=== PATIENT | male | born 1990 | race Caucasian/White ===

== ENCOUNTER 2017-09-08 10:08 | Emergency (ER) | payer OTHER ==
[~2017-09-08] VITALS: Ht 167.6 cm; Wt 111.0 kg
[2017-09-08 10:15] VITALS: Ht 167.6 cm; Wt 111.0 kg
[2017-09-08] MEDS ORDERED: METOCLOPRAMIDE HCL INJ 5 MG/ML 2 ML VIAL IV STA (10:29)
[2017-09-08] MEDS ORDERED: SODIUM CHLORIDE 0.9% 500ML 500 ML IV STA (10:29)
--- NOTE | 2017-09-08 10:31 | EMERGENCY ROOM VISIT NOTE ---
History Report prepared by Richard: Jojo Carroll Under the Supervision of: Dr. Heron Ray M.D. First contact with patient: 10:22 Chief Complaint: NAUSEA Stated Complaint: NAUSEA,CRAMPING,DIARRHEA,VOMITING History of Present Illness The patient is a 27 year old male who presents to the Emergency Room with complaints of persistent vomiting that began this morning. The patient states that over the past week he has been experiencing diarrhea. He states that he has 3-4 bowel movements per day. The patient denies any questionable food sources or recent antibiotic use. He states that he was also experiencing nausea and abdominal pain. The patient describes his abdominal pain as a dull cramping pain. He states that he was prescribed Zofran for his nausea. The patient states that he has been vomiting. He states that he has a history of an appendectomy. Source of History: patient Onset: this morning Position: other (global) Quality: other (vomiting) Timing: other (persistent) Associated Symptoms: + nausea, + abdominal pain, + diarrhea Review of Systems See HPI for pertinent positives & negatives. A total of 10 systems reviewed and were otherwise negative. Past Medical & Surgical Medical Problems: (1) Asthma (2) Bronchitis Surgical Problems: (1) History of appendectomy Family History Cancer Diabetes mellitus Heart disease Hypertension Kidney disease Kidney stones Seizures Social History Smoking Status: Current Every Day Smoker Alcohol Use: occasionally Marital Status: single Housing Status: lives with family Occupation Status: employed Current/Historical Medications Scheduled Ondasetron Odt (Zofran Odt), 4 MG SL Q6H Scheduled PRN Promethazine Hcl (Phenergan), 25 MG PO Q6H PRN for Nausea Allergies Coded Allergies: No Known Allergies (Unverified , 09/08/17) Physical Exam Vital Signs Date Time Temp Pulse Resp B/P (MAP) Pulse Ox O2 Delivery O2 Flow Rate FiO2 09/08/17 12:51 37.2 64 19 105/51 96 09/08/17 12:43 64 19 96 09/08/17 12:31 105/51 09/08/17 12:17 103/57 09/08/17 11:13 71 22 96 09/08/17 11:08 71 18 95 09/08/17 11:05 100/60 09/08/17 10:59 75 09/08/17 10:38 79 21 94 09/08/17 10:15 37.2 89 20 118/80 94 Room Air Physical Exam GENERAL: Patient is a healthy-appearing well-nourished male HEAD: Normocephalic atraumatic EYES: Ocular movements intact pupils equal and react to light OROPHARYNX mucous membranes are moist no exudates present no erythema or edema present NECK: Supple no nuchal rigidity CHEST: Good equal expansion LUNGS: Clear and equal to auscultation CARDIAC: Normal S1 and S2 ABDOMEN: Soft nontender no guarding BACK: No CVA tenderness EXTREMITIES: No pain upon palpation normal muscle strength in all groups no clubbing cyanosis or edema NEURO: Patient is following commands and answering questions appropriately. Alert and oriented x3 Cranial Nerves 2-12 grossly intact Medical Decision & Procedures ER Provider Diagnostic Interpretation: Radiology results as stated below per my review and radiologist interpretation: ABDOMEN 2VIEW W/PA CHEST RTN CLINICAL HISTORY: Pt c/o epigastric pain pain. Nausea. COMPARISON STUDY: None FINDINGS: The soft tissues, psoas shadows, renal outlines and intestinal gas pattern appear normal. There is no evidence for bowel obstruction. There is no evidence for free intraperitoneal air. No abnormal abdominal calcifications are seen. A frontal view of the chest was performed and is unremarkable. There are several pelvic vascular calcifications. IMPRESSION: Normal study. The above report was generated using voice recognition software. It may contain grammatical, syntax or spelling errors. Electronically signed by: Murtaza Babb M.D. 09/08/2017 11:03 AM Dictated Date/Time: 09/08/2017 11:02 AM ABD/PELVIS IV CONTRAST ONLY CT DOSE: 1152.96 mGy.cm HISTORY: Pain Pt c/o epigastric pain TECHNIQUE: Multiaxial CT images of the abdomen and pelvis were performed following the use of intravenous contrast. A dose lowering technique was utilized adhering to the principles of ALARA. COMPARISON STUDY: None. FINDINGS: Lung bases show minimal chronic pleural thickening posteriorly. There are no focal basilar infiltrative changes. Liver spleen and pancreas are uniform throughout. Gallbladder is negative for distention. Pancreas is unremarkable. Kidneys enhance uniformly. There are negative for an versus. Bowel pattern is remarkable for moderate wall thickening of the bulk of the transverse colon. This is seen to a lesser extent involving the distal aspect of the a sending colonic region. No evidence for abscess collection or obstruction. Trace amount of wall edematous change of the sigmoid. Bladder is midline. There are no contained calcifications. The appendix is surgically absent. IMPRESSION: 1. Nonspecific colitis involving the bulk of the transverse colon and to lesser extent sigmoid colon. 2. No evidence for abscess collection or obstruction. 3. Study is otherwise negative post appendectomy The above report was generated using voice recognition software. It may contain grammatical, syntax or spelling errors. Electronically signed by: Murtaza Babb M.D. 09/08/2017 11:50 AM Dictated Date/Time: 09/08/2017 11:41 AM Laboratory Results 09/08/17 10:35 Red Blood Count 5.44, Mean Corpuscular Volume 87.3, Mean Corpuscular Hemoglobin 30.7, Mean Corpuscular Hemoglobin Concent 35.2, Mean Platelet Volume 9.6, Neutrophils (%) (Auto) 67.5, Lymphocytes (%) (Auto) 22.7, Monocytes (%) (Auto) 6.4, Eosinophils (%) (Auto) 1.6, Basophils (%) (Auto) 0.9, Neutrophils # (Auto) 6.02, Lymphocytes # (Auto) 2.02, Monocytes # (Auto) 0.57, Eosinophils # (Auto) 0.14, Basophils # (Auto) 0.08 09/08/17 10:35 Test 09/08/17 10:35 White Blood Count 8.91 K/uL (4.8-10.8) Red Blood Count 5.44 M/uL (4.7-6.1) Hemoglobin 16.7 g/dL (14.0-18.0) Hematocrit 47.5 % (42-52) Mean Corpuscular Volume 87.3 fL (80-100) Mean Corpuscular Hemoglobin 30.7 pg (25-34) Mean Corpuscular Hemoglobin Concent 35.2 g/dl (32-36) Platelet Count 216 K/uL (130-400) Mean Platelet Volume 9.6 fL (7.4-10.4) Neutrophils (%) (Auto) 67.5 % Lymphocytes (%) (Auto) 22.7 % Monocytes (%) (Auto) 6.4 % Eosinophils (%) (Auto) 1.6 % Basophils (%) (Auto) 0.9 % Neutrophils # (Auto) 6.02 K/uL (1.4-6.5) Lymphocytes # (Auto) 2.02 K/uL (1.2-3.4) Monocytes # (Auto) 0.57 K/uL (0.11-0.59) Eosinophils # (Auto) 0.14 K/uL (0-0.5) Basophils # (Auto) 0.08 K/uL (0-0.2) RDW Standard Deviation 41.7 fL (36.4-46.3) RDW Coefficient of Variation 13.2 % (11.5-14.5) Immature Granulocyte % (Auto) 0.9 % Immature Granulocyte # (Auto) 0.08 K/uL (0.00-0.02) Anion Gap 7.0 mmol/L (3-11) Est Creatinine Clear Calc Drug Dose 131.2 ml/min Estimated GFR () 121.1 Estimated GFR (Non- 104.5 BUN/Creatinine Ratio 14.1 (10-20) Calcium Level 8.2 mg/dl (8.5-10.1) Total Bilirubin 0.4 mg/dl (0.2-1) Direct Bilirubin 0.1 mg/dl (0-0.2) Aspartate Amino Transf (AST/SGOT) 22 U/L (15-37) Alanine Aminotransferase (ALT/SGPT) 47 U/L (12-78) Alkaline Phosphatase 73 U/L (45-117) Total Protein 7.4 gm/dl (6.4-8.2) Albumin 4.0 gm/dl (3.4-5.0) Lipase 974 U/L (73-393) Labs reviewed by ED physician. Medications Administered Medications (Trade) Dose Ordered Sig/Reagan Route Start Time Stop Time Status Last Admin Dose Admin Sodium Chloride 500 ml @ 999 mls/hr Q31M STAT IV 09/08/17 10:29 09/08/17 10:59 DC 09/08/17 10:29 999 MLS/HR Metoclopramide HCl (Reglan Inj) 10 mg NOW STAT IV 09/08/17 10:29 09/08/17 10:30 DC 09/08/17 11:04 10 MG Cholestyramine Resin (Questran Powder Light) 4 gm NOW STAT PO 09/08/17 11:01 09/08/17 11:02 DC 09/08/17 11:01 4 GM ED Course 1025: Past medical records reviewed. The patient was evaluated in room B2. A complete history and physical examination was performed. 1029: Ordered Reglan Inj 10 mg IV, Sodium Chloride 500 ml @ 999 mls/hr IV. 1101: Ordered Cholestyramine Resin 4 gm PO. 1124: I reevaluated the patient and he is resting. He is going to have a CT Scan. 1227: I reevaluated the patient and he is resting comfortably. I discussed the exam findings with him and I discussed the treatment plan. He verbalized complete understanding and agreement. He is ready to go home. Medical Decision Differential diagnosis: Etiologies such as appendicitis, diverticulitis, PUD, biliary pathology, UTI, pancreatitis, obstruction, mesenteric ischemia, aortic pathology, infections, inflammatory bowel disease, renal colic, as well as others were entertained. This is a 27-year-old male who presents emergency department complaining of diarrhea that has been ongoing for the past 3 weeks. Serial abdominal examinations were performed on the patient in the emergency department and at no tender the patient exhibit a surgical abdomen. The patient does have a slight elevation in his lipase therefore he was sent for CAT scan of the abdomen and pelvis. I do feel in comparison with a CAT scan that the lipase is most likely reactive however I did stressed the need for clear liquid diet to the patient for the next 48 hours and to avoid alcohol. I do believe that the patient is suffering from gastroenteritis. He was unable to provide a stool sample in the emergency department so he was given scripts to provide a stool sample. He was given Zofran in the emergency department. Repeat examination revealed much improvement patient's symptoms. I do believe that the patient as well as to be discharged home for follow-up this primary care physician. Patient was in agreement with the treatment plan. Medication Reconcilliation Current Medication List: was personally reviewed by me Impression Primary Impression: Gastroenteritis Scribe Attestation The scribe's documentation has been prepared under my direction and personally reviewed by me in its entirety. I confirm that the note above accurately reflects all work, treatment, procedures, and medical decision making performed by me. Departure Information Dispostion Discharge/Transfer to [facility] Prescriptions Promethazine Hcl (Phenergan) 25 Mg Tab 25 MG PO Q6H Y for Nausea, #10 TAB Prov: Heron Ray MD 11/22/17 Referrals Jason Ash M.D. (PCP) Forms HOME CARE DOCUMENTATION FORM, IMPORTANT VISIT INFORMATION, School Instructions, Work Instructions Patient Instructions ED Diet Vomiting Diarrhea, ED Gastroenteritis Report [place], [facility] Additional Instructions Clear liquid diet next 48 hours Culture results are usually available in approx 48 hours You have been examined and treated today on an emergency basis only. This is not a substitute for, or an effort to provide, complete comprehensive medical care. It is impossible to recognize and treat all injuries or illnesses in a single emergency department visit. It is therefore important that you follow up closely with your PCP. Call as soon as possible for an appointment. Thank you for your time and consideration. I look forward to speaking with you again soon. Please don't hesitate to call us if you have any questions.
[2017-09-08 10:56] LABS: BASO % 0.9 %; BASO ABS # 0.08 K/uL (0-0.2); COMPLETE YES; EOS % 1.6 %; HEMATOCRIT 47.5 % (42-52); IG% 0.9 %; LYMPH % 22.7 %; LYMPH ABS # 2.02 K/uL (1.2-3.4); MEAN CELL VOLUME 87.3 fL (80-100); MEAN CORPUSCULAR HEMOGLOBIN 30.7 pg (25-34); MEAN CORPUSCULAR HGB CONC 35.2 g/dl (32-36); MEAN PLATELET VOLUME 9.6 fL (7.4-10.4); MONO % 6.4 %; NEUT % 67.5 %; PLATELET COUNT 216 K/uL (130-400); RED BLOOD COUNT 5.44 M/uL (4.7-6.1); WHITE BLOOD COUNT 8.91 K/uL (4.8-10.8)
[2017-09-08] MEDS ORDERED: CHOLESTYRAMINE LIGHT 4 GM PKT PO STA (11:01)
--- NOTE | 2017-09-08 11:04 | DIAGNOSTIC IMAGING REPORT ---
ABDOMEN 2VIEW W/PA CHEST RTN CLINICAL HISTORY: Pt c/o epigastric pain pain. Nausea. COMPARISON STUDY: None FINDINGS: The soft tissues, psoas shadows, renal outlines and intestinal gas pattern appear normal. There is no evidence for bowel obstruction. There is no evidence for free intraperitoneal air. No abnormal abdominal calcifications are seen. A frontal view of the chest was performed and is unremarkable. There are several pelvic vascular calcifications. IMPRESSION: Normal study. The above report was generated using voice recognition software. It may contain grammatical, syntax or spelling errors. Electronically signed by: Murtaza Babb M.D. 09/08/2017 11:03 AM Dictated Date/Time: 09/08/2017 11:02 AM
[2017-09-08 11:08] LABS: BUN/CREATININE RATIO 14.1 (10-20); CALCIUM 8.2 mg/dl (8.5-10.1); CREATININE 0.98 mg/dl (0.60-1.40); POTASSIUM 3.9 mmol/L (3.5-5.1)
[2017-09-08] MEDS ORDERED: ONDA4TAB10 SL (11:23)
[2017-09-08] MEDS ORDERED: OPTIRAY 320 IV PRN (11:30)
--- NOTE | 2017-09-08 11:51 | DIAGNOSTIC IMAGING REPORT ---
ABD/PELVIS IV CONTRAST ONLY CT DOSE: 1152.96 mGy.cm HISTORY: Pain Pt c/o epigastric pain TECHNIQUE: Multiaxial CT images of the abdomen and pelvis were performed following the use of intravenous contrast. A dose lowering technique was utilized adhering to the principles of ALARA. COMPARISON STUDY: None. FINDINGS: Lung bases show minimal chronic pleural thickening posteriorly. There are no focal basilar infiltrative changes. Liver spleen and pancreas are uniform throughout. Gallbladder is negative for distention. Pancreas is unremarkable. Kidneys enhance uniformly. There are negative for an versus. Bowel pattern is remarkable for moderate wall thickening of the bulk of the transverse colon. This is seen to a lesser extent involving the distal aspect of the a sending colonic region. No evidence for abscess collection or obstruction. Trace amount of wall edematous change of the sigmoid. Bladder is midline. There are no contained calcifications. The appendix is surgically absent. IMPRESSION: 1. Nonspecific colitis involving the bulk of the transverse colon and to lesser extent sigmoid colon. 2. No evidence for abscess collection or obstruction. 3. Study is otherwise negative post appendectomy The above report was generated using voice recognition software. It may contain grammatical, syntax or spelling errors. Electronically signed by: Murtaza Babb M.D. 09/08/2017 11:50 AM Dictated Date/Time: 09/08/2017 11:41 AM
[2017-09-08] MEDS ORDERED: PROM25TA9 PO (12:35)
[2017-09-08 12:51] VITALS: BP 105/51; PULSE 64; TEMP 37.2; O2SAT 96
== END 2017-09-08 12:52 | disposition home or self-care (01) ==
LOC: C.EDB 10:09
DX: K52.9 Noninfective gastroenteritis and colitis, unspecified (principal); J45.909 Unspecified asthma, uncomplicated; Z80.9 Family history of malignant neoplasm, unspecified; Z83.3 Family history of diabetes mellitus; Z82.49 Family history of ischemic heart disease and other diseases of the circulatory system; Z84.1 Family history of disorders of kidney and ureter; Z82.0 Family history of epilepsy and other diseases of the nervous system; F17.210 Nicotine dependence, cigarettes, uncomplicated

== ENCOUNTER 2017-10-09 18:23 | Emergency (ER) | payer OTHER ==
[~2017-10-09] VITALS: Ht 165.1 cm; Wt 108.7 kg
[~2017-10-09 18:23] MED LIST: ONDA4TAB10 SL; PROM25TA9 PO
[2017-10-09 18:30] VITALS: BP 136/91; PULSE 91; TEMP 36.7; O2SAT 95; Ht 165.1 cm; Wt 108.7 kg
[2017-10-09] MEDS ORDERED: DEXT1LIQ58 PO (18:47)
[2017-10-09] MEDS ORDERED: ALBUT/IPRATROP 3MG/0.5MG NEB 3 ML VIAL INH STA (18:48)
[2017-10-09] MEDS ORDERED: TRAM-10 PO (19:43)
[2017-10-09] MEDS ORDERED: AZITTAB PO (19:43)
[2017-10-09] MEDS ORDERED: PRED20TA2 PO (19:43)
[2017-10-09] MEDS ORDERED: BENZ100C18 PO (19:43)
[2017-10-09] MEDS ORDERED: TRAMADOL HCL 50 MG HOME PACK PO ONE (19:45)
[2017-10-09] MEDS ORDERED: ALBUTEROL HFA 8 GM INHALER INH ONE (19:45)
[2017-10-09] MEDS ORDERED: BENZONATATE 100MG CAP PO ONE (19:45)
--- NOTE | 2017-10-09 20:29 | DIAGNOSTIC IMAGING REPORT ---
L RIBS UNILATERAL WITH PA CHEST CLINICAL HISTORY: cough, L lateral rib pain COMPARISON STUDY: Chest 09/08/2017. FINDINGS: No acute rib fractures. No pneumothorax. The lungs are clear. The heart is normal in size. No pleural effusions. IMPRESSION: No rib fractures. No pneumothorax. Electronically signed by: Quinn Beal M.D. 10/09/2017 8:27 PM Dictated Date/Time: 10/09/2017 8:25 PM
--- NOTE | 2017-10-09 22:22 | EMERGENCY ROOM VISIT NOTE ---
ED Visit Note First contact with patient: 18:32 Chief Complaint: Cough and rib pain. History of Present Illness: Mr. Vidal is a 27-year-old white male who ambulates into the ED complaining of cough and rib pain. Historically patient reports she has a history of asthma and bronchitis but has not experienced any symptoms related to these since he was a child. Patient reports approximately 2 weeks ago he started developing upper respiratory tract symptoms with runny noses, nasal drainage and a nonproductive cough. He reports since that time his cough has increased in intensity and is now productive of either a white or he greenish sputum. Over the last week he reports he has been having left lateral rib pain with his cough. Currently he describes that pain as a sharp sensation. He rates his discomfort 5/10. The pain is nonradiating. His pain worsens with cough and palpation. He has not identified any alleviating factors related to the pain. He reports he has been using DayQuil without relief of his discomfort. Associated with his pain he still has the cough and he reports sometimes at night he hears himself wheezing. He denies fevers, chills, sweats, skin eruptions, skin color changes, chest pain , palpitations, orthopnea, dependent edema, previous clots, claudication, cramping, recent surgery/inactivity/extended travel, abdominal pain, nausea, vomiting, back pain. Review of Systems: As noted above in history of present illness. 8 body systems were reviewed and found to be negative as noted above. Past Medical History: As previously noted and status post appendectomy. Current Medications: Patient denies. Allergies to Medications: Patient denies. Social History: Patient is currently employed; he feels safe in his home environment; he admits to chewing tobacco; he denies alcohol use. Physical Examination: Vital Signs: Date Time Temp Pulse Resp B/P (MAP) Pulse Ox O2 Delivery O2 Flow Rate FiO2 10/09/17 18:30 36.7 91 20 136/91 95 Room Air GENERAL: 27-year-old male in mild distress due to pain, nontoxic-appearing, afebrile and hemodynamically stable. NEUROLOGICAL: Awake, alert and oriented to person, place and time. Answering questions appropriately and following commands. Normal gait. Good hand eye coordination. No focal motor sensory deficits. SKIN: Warm, dry and pink. No soft tissue eruptions or trauma noted. HEENT: Atraumatic and normocephalic. No erythema or edema over the frontal or maxillary sinuses. Sclera white and conjunctiva pink. No drainage from naris, but mild auto congestion is heard. Oral cavity moist and pink. Airway is patent. Pharynx is nonerythematous or edematous. Speech normal and clear. No lymphadenopathy. Trachea midline. No jugular venous distention. BACK: No tenderness over the bony spine. No CVA tenderness. THORAX: Lungs sounds are clear to auscultation, with decreased air movement in all fagan. Equal bilaterally with symmetrical chest wall. No wheezing, rales or rhonchi. Mild tenderness over the left lateral ribs without crepitus, tenderness, subcutaneous air or deformities noted. HEART: Regular rate and rhythm. No gallops, rubs or murmurs are appreciated. ABDOMEN: Flat, soft and nontender. Positive bowel sounds in all quadrants. No guarding, rigidity or organomegaly. EXTREMITIES: Moves all extremities well on command and with purpose. All distal neurovascular statuses are intact and equal bilaterally. No calf tenderness or cords. ED Course: Patient is assessed as noted above. Patient's medication list was reviewed. Patient is given an albuterol/Atrovent nebulizer breathing treatment and 60 mg of prednisone by mouth for his symptoms. After his breathing treatment he was reassessed and had improved air movement and continued to have no wheezings or signs of distress. PA Chest and Left Rib Series: Was read by myself and the radiologist and showing no acute infiltrates, effusions or pneumothorax. Normal heart silhouette and bony anatomy. Patient was educated about today's findings and instructed on his treatment plan ; he verbalizes understanding and agreement with this plan. Clinical Impression: Acute bronchitis. Decision-Making: Initially my differential diagnosis I considered bronchitis, pneumonia, pneumothorax, asthma exacerbation and other causes. Disposition: Patient discharged home in stable condition; prior to departure he was reassessed and subjectively reported he was feeling better and rated his discomfort 4/10 and reported easier breathing. Plan: Patient was prescribed an albuterol inhaler with spacer encouraged to use 2 puffs every 6 hours for 5 days and as needed for severe coughing episodes, shortness of breath or wheezing. Patient was prescribed prednisone 60 mg once a day for total 5 days. Patient was prescribed Tessalon Perles 100 mg every 8 hours as needed for cough. Patient was prescribed Ultram 50 mg every 6 hours as needed for chest pain. Patient was encouraged to follow-up with family physician for recheck. Patient was encouraged return ED for worsening cough, worsening shortness of breath, worsening wheezing, fevers, coughing up blood, worsening pain or any new /concerning symptoms.
== END 2017-10-09 20:03 | disposition home or self-care (01) ==
LOC: C.EDB 18:24 → C.EDD 20:03
DX: J20.9 Acute bronchitis, unspecified (principal); F17.220 Nicotine dependence, chewing tobacco, uncomplicated

== ENCOUNTER 2017-10-14 17:56 | Emergency (ER) | payer OTHER ==
[~2017-10-14] VITALS: Ht 177.8 cm; Wt 107.6 kg
[~2017-10-14 17:56] MED LIST changes: +AZITTAB PO; +BENZ100C18 PO; +DEXT1LIQ58 PO; -ONDA4TAB10 SL; +PRED20TA2 PO; -PROM25TA9 PO; +TRAM-10 PO
[2017-10-14 18:02] VITALS: BP 140/76; PULSE 87; TEMP 37; O2SAT 95; Ht 177.8 cm; Wt 107.6 kg
--- NOTE | 2017-10-14 18:18 | EMERGENCY ROOM VISIT NOTE ---
History Report prepared by Richard: Bouchra Saenz Under the Supervision of: Dr. Heron Carter D.O. First contact with patient: 18:05 Chief Complaint: COUGH Stated Complaint: COUGHING, BELIEVED HE BLACKED OUT FROM IT History of Present Illness The patient is a 27 year old male who presents to the Emergency Room with complaints of a worsening cough starting a few days ago. The patient states that he was at the ED the other day and was diagnosed with Bronchitis. He reports that since taking the medications given he has had less coughing. He states that when he does cough, it comes like a coughing fit. He states that today he has been passing out when these spells occur. The patient's girlfriend states that the last time he had one and became unconscious she thought he was having a seizure. She states that his face became red and then he leaned over. She reports at this time he started shaking. She states that he was only like that for 30 seconds. The patient states that he did not feel out of it when he came to and only remember coughing before going out. The patient complains of worsening rib pain. He notes that he takes Ibuprofen with some relief. Source of History: patient, spouse/significant other Onset: a few days ago Position: other (global) Quality: other (spells) Timing: worsening Modifying Factors (Relieving): ibuprofen, other (prescribed medications) Associated Symptoms: + LOC Note: The patient complains of rib pain. The patient's girlfriend complains of the patient shaking with loss of consciousness. Review of Systems See HPI for pertinent positives & negatives. A total of 10 systems reviewed and were otherwise negative. Past Medical & Surgical Medical Problems: (1) Asthma (2) Bronchitis Surgical Problems: (1) History of appendectomy Family History Cancer Diabetes mellitus Heart disease Hypertension Kidney disease Kidney stones Seizures Social History Smoking Status: Never Smoker Alcohol Use: occasionally Marital Status: in relationship Housing Status: lives with family Occupation Status: employed Current/Historical Medications Scheduled Azithromycin (Zithromax Z-Yusuf), 0 PO UD Dextromethorphan-Phenylephrine (Vicks Dayquil Cold & Flu), 1 DOSE PO PRN UD Prednisone (Prednisone Tab), 3 TAB PO DAILY Scheduled PRN Benzonatate (Tessalon Perles), 100 MG PO Q8 PRN for Cough Tramadol (Ultram), 1 TAB PO Q6H PRN for Pain Allergies Coded Allergies: No Known Allergies (Unverified , 10/14/17) Physical Exam Vital Signs Date Time Temp Pulse Resp B/P (MAP) Pulse Ox O2 Delivery O2 Flow Rate FiO2 10/14/17 18:20 97 10/14/17 18:02 37.0 87 18 140/76 95 Room Air Physical Exam CONSTITUTIONAL/VITAL SIGNS: Reviewed / noted above. GENERAL: Non-toxic in appearance. INTEGUMENTARY: Warm, dry, and [place]. HEAD: Normocephalic. EYES: without scleral icterus or trauma. ENT/OROPHARYNX: clear and moist. LYMPHADENOPATHY/NECK: Is supple without lymphadenopathy or meningismus. RESPIRATORY: Lungs clear and equal. CARDIOVASCULAR: Regular rate and rhythm. GI/ABDOMEN: Soft and nontender. No organomegaly or pulsatile mass. No rebound or guarding. Normal bowel sounds. EXTREMITIES: Warm and well perfused. BACK: No CVA tenderness. NEUROLOGICAL: Intact without focal deficits. PSYCHIATRIC: normal affect. MUSCULOSKELETAL: Normally developed with good muscle tone. Medical Decision & Procedures ED Course 1808: Previous medical records were reviewed. The patient was evaluated in room B10. A complete history and physical examination was performed. I discussed the results and findings with the patient. He verbalized agreement of the treatment plan. The patient was discharged home. Medical Decision Differential includes acute cardiac dysrhythmia, microinfarction, CVA, TIA, dehydration, anemia, electrolyte disturbance, seizure, trauma, intracranial bleeding, acute vascular catastrophe, thoracic aortic dissection, PE, abdominal aortic aneurysm rupture. This is a 27-year-old male who presents to the ED with a chief complaint of passing out with coughing. The patient states that it occurred twice today. Once it was not witnessed and the second time it was witnessed by his friend. He was coughing heavily and then looked red according to the friend. The friend thought that he was choking. The patient briefly passed out or. Passed out for less than 30 seconds. When he awoke he was awake, alert and oriented and in no distress and did not have any complaints. He did not have any postictal period. There was a little shaking. The patient did not fall or hurt himself. The patient denies any other significant symptoms. Denies recent palpitations, lightheadedness, dizziness. He is currently on medication for his bronchitis. He is on Zithromax as well as Tessalon Perles and an inhaler. He had blood work and an x-ray done a few days ago. This was all unremarkable. The patient's exam today reveals clear lungs. Heart is regular rate and rhythm. Pulses are strong the radial pulses. There is no irregularity. The patient appears well. He denies any symptoms at this time. His vital signs are stable. He is felt to be stable for discharge and outpatient follow-up. He will continue his current therapy. I suspect his syncope/near syncope is related to cough syncope. Medication Reconcilliation Current Medication List: was personally reviewed by me Blood Pressure Screening Patient's blood pressure: Elevated blood pressure Blood pressure disposition: Elevated BP felt to be situational Impression Primary Impression: Cough syncope Scribe Attestation The scribe's documentation has been prepared under my direction and personally reviewed by me in its entirety. I confirm that the note above accurately reflects all work, treatment, procedures, and medical decision making performed by me. Departure Information Dispostion Home / Self-Care Referrals No Doctor, Assigned (PCP) Forms HOME CARE DOCUMENTATION FORM, IMPORTANT VISIT INFORMATION Patient Instructions My [facility] Additional Instructions Continue current medications. See your doctor next week if symptoms persist.
== END 2017-10-14 18:38 | disposition home or self-care (01) ==
LOC: C.EDB 17:58
DX: R05 Cough (principal); J45.909 Unspecified asthma, uncomplicated; Z83.3 Family history of diabetes mellitus; Z82.49 Family history of ischemic heart disease and other diseases of the circulatory system; Z82.0 Family history of epilepsy and other diseases of the nervous system